=== PATIENT | female | born 1970 | race Caucasian/White ===

== ENCOUNTER 2017-11-17 10:41 | Emergency (ER) | payer SELFPAY ==
[~2017-11-17] VITALS: Ht 157.5 cm; Wt 60.5 kg
[2017-11-17 10:47] VITALS: BP 147/76; Ht 157.5 cm; Wt 60.5 kg
[2017-11-17] MEDS ORDERED: NAPROSYN500 MG PO (10:48)
[2017-11-17] MEDS ORDERED: CELEXA20 MG PO (10:48)
[2017-11-17] MEDS ORDERED: LISINOPRIL10 MG PO (10:49)
[2017-11-17 11:17] LABS: BASOPHILS 0.2 % (0-2); EOSINOPHILS 2.2 % (0-7); HEMATOCRIT 39.6 % (36.0-48.0); HEMOGLOBIN 13.3 g/dL (12-16); IMMATURE GRANULOCYTES 0.1 % (0-5); LYMPHOCYTES 25.7 % (15-50); MCH 30.4 pg (26.0-34.0); MCHC 33.6 g/dL (31.0-37.0); MCV 90.4 fL (80.0-100.0); MEAN PLATELET VOLUME 10.7 fL (7.4-10.4); MONOCYTES 4.8 % (2-11); PLATELET COUNT 243 10x3/uL (130-400); RBC 4.38 10x6/uL (4.00-5.40)
[2017-11-17 11:26] LABS: APPEARANCE CLEAR (CLEAR); BILIRUBIN NEGATIVE (NEGATIVE); COLOR STRAW (YELLOW); GLUCOSE NEGATIVE (NEGATIVE); KETONE NEGATIVE (NEGATIVE); NITRITE NEGATIVE (NEGATIVE); PROTEIN NEGATIVE (NEGATIVE); SPECIFIC GRAVITY 1.005 (1.005-1.020); UROBILINOGEN NORMAL (NORMAL)
[2017-11-17 11:53] LABS: ALBUMIN 3.8 g/dL (3.4-5.0); ALKALINE PHOSPHATASE 86 U/L (46-116); ALT (SGPT) 30 U/L (10-68); BILIRUBIN - TOTAL 0.38 mg/dL (0.2-1.3); CALC OSMOLALITY 282 mosm/kg (275-300); CALCIUM 8.7 mg/dL (8.5-10.1); CARBON DIOXIDE 26.7 mmol/L (21.0-32.0); CHLORIDE - SERUM 108 mmol/L (98-107); CREATININE - SERUM 0.6 mg/dL (0.6-1.3); GLUCOSE 99 mg/dL (74-106); POTASSIUM - SERUM 3.9 mmol/L (3.5-5.1); PROTEIN - SERUM 6.6 g/dL (6.4-8.2); SODIUM 141 mmol/L (136-145); UREA NITROGEN 17 mg/dL (7-18); eGFR NON AFRICAN AMERICAN > 90 mL/min (90-120)
[2017-11-17 12:02] LABS: CKMB 0.7 U/L (0.0-3.6); CREATINE KINASE 62 UL (21-215); TROPONIN-I < 0.017 ng/mL (0.000-0.060)
[2017-11-17] MEDS ORDERED: CYCLOBENZAPRINE10 MG PO (13:27)
== END 2017-11-17 13:26 | disposition home or self-care (01) ==
LOC: D.ER 10:41
PROVIDERS: Family Medicine
DX: S16.1XXA Strain of muscle, fascia and tendon at neck level, initial encounter (principal); X58.XXXA Exposure to other specified factors, initial encounter; Y93.89 Activity, other specified; Y92.019 Unspecified place in single-family (private) house as the place of occurrence of the external cause; M62.838 Other muscle spasm; R51 Headache; I50.9 Heart failure, unspecified; F17.200 Nicotine dependence, unspecified, uncomplicated

== ENCOUNTER 2018-10-21 21:24 | Emergency (ER) | payer SELFPAY ==
[~2018-10-21] VITALS: Ht 157.5 cm; Wt 53.2 kg
[~2018-10-21 21:24] MED LIST: CELEXA20 MG PO; CYCLOBENZAPRINE10 MG PO; LISINOPRIL10 MG PO; NAPROSYN500 MG PO
[2018-10-21 21:32] VITALS: Ht 157.5 cm; Wt 53.2 kg
[2018-10-21] MEDS ORDERED: VOLTAREN75 MG PO (21:59)
[2018-10-21 22:38] VITALS: BP 140/71
== END 2018-10-21 22:28 | disposition home or self-care (01) ==
LOC: D.ER 21:24
DX: S99.922A Unspecified injury of left foot, initial encounter (principal); X50.1XXA Overexertion from prolonged static or awkward postures, initial encounter; Y93.89 Activity, other specified; Y92.019 Unspecified place in single-family (private) house as the place of occurrence of the external cause; M25.572 Pain in left ankle and joints of left foot